=== PATIENT | female | born 1935 | race Caucasian/White ===

== ENCOUNTER 2018-02-07 10:50 | Inpatient (IN) ==
[2018-02-07 11:19] LABS: Basophils # 0.1 K/mm3 (0-0.2); Basophils % 0.4 % (0.1-2.0); Eosinophils # 0.1 K/mm3 (0.0-0.4); Eosinophils % 0.6 % (0.1-12.0); Hematocrit 48.7 % (37.0-47.0); Hemoglobin 14.6 g/dL (12.2-16.2); Lymphocytes # 1.1 K/mm3 (0.7-4.5); Lymphocytes % 5.3 K/mm3 (10-50); Mean Corpuscular Hemoglobin 28.1 pg (27.0-31.2); Mean Corpuscular Volume 93.6 fl (81-99); Mean Platelet Volume 8.6 fl (7.4-10.4); Monocytes # 0.2 K/mm3 (0.1-1.0); Monocytes % 1.1 % (1.7-9.3); Neutrophils # 18.9 K/mm3 (1.8-7.8); Neutrophils % 92.6 % (37.0-80.0); Platelet Count 366 K/mm3 (142-424); Red Cell Distribution Width 14.8 % (11.5-17.5); White Blood Count 20.4 K/mm3 (4.8-10.8)
--- NOTE | 2018-02-07 11:32 | Emergency Department Note ---
ED Disposition Clinical Impression: Enteritis Hypotension Qualifiers: Hypotension type: unspecified hypotension type Qualified Code(s): I95.9 - Hypotension, unspecified Disposition: Still a Patient Condition on Discharge: Serious - Critical Care Critical Care Time: Yes Attestation: On 02/07/18, the high probability of a clinically significant, sudden or life threatening deterioration of the following system(s) required my full and direct attention, intervention and personal management. The time I documented below is in addition to time spent performing reported procedures but includes the following listed in this critical care notation. Vital system(s) involved:: Circulatory Failure My critical care processes included: Assessment & monitoring of V/S, Initial and Re-exams, Data Review/Interpretation, Coordinating Care, Medication Orders and management, Documentation Medical Decision Making - Quinten Inquiry Pt receiving controlled substance: Yes Quinten was queried for this patient: No Reason not queried -: Emergent pt cond-no time Risks and benefits of using a controlled substance: were not discussed with pt by me Vital Signs: 02/07/18 10:50 02/07/18 11:05 02/07/18 11:10 Temperature 97.6 F Temperature Source Oral Pulse Rate 99 H Pulse Rate [Left Radial] 91 H Respiratory Rate 20 Blood Pressure [Right Arm] 188/74 Blood Pressure Mean [Right Arm] 112 Blood Pressure Source [Right Arm] Blood Pressure Position [Right Arm] Sitting 02 Sat by Pulse Oximetry 88 L 85 L 95 Oxygen Delivery Method Nasal Cannula Room Air Nasal Cannula Oxygen Flow Rate (LPM) 4 2 4 02/07/18 11:28 02/07/18 13:15 Temperature 97.5 F L Temperature Source Oral Pulse Rate Pulse Rate [Left Radial] 110 H 85 Respiratory Rate 24 32 H Blood Pressure [Right Arm] 177/78 97/58 Blood Pressure Mean [Right Arm] 111 71 Blood Pressure Source [Right Arm] Automatic Cuff Automatic Cuff Blood Pressure Position [Right Arm] Sitting Sitting 02 Sat by Pulse Oximetry 92 L 96 Oxygen Delivery Method Nasal Cannula Nasal Cannula Oxygen Flow Rate (LPM) 4 3 - Lab Data Lab Results 02/07/18 11:00: WBC 20.4 H*, RBC 5.20, Hgb 14.6, Hct 48.7 H, MCV 93.6, MCH 28.1 , MCHC 30.0 L, RDW 14.8, Plt Count 366, MPV 8.6, Neut % (Auto) 92.6 H, Lymph % ( Auto) 5.3 L, [place] % (Auto) 1.1 L, Eos % (Auto) 0.6, Baso % (Auto) 0.4, Neut # ( Auto) 18.9 H, Lymph # (Auto) 1.1, [place] # (Auto) 0.2, Eos # (Auto) 0.1, Baso # ( Auto) 0.1 02/07/18 11:00: Sodium 140, Potassium 4.6, Chloride 99, Carbon Dioxide 33 H, Anion Gap 12.6, BUN 22 H, Creatinine 1.18 H, Estimated Creat Clear 30, Estimated GFR 44 L, Est GFR ( Amer) 53 L, Glucose 157 H, Calcium 9.7, Total Bilirubin 1.2 H, AST 68 H, ALT 50, Alkaline Phosphatase 127 H, Total Creatine Kinase 101, CK-MB (CK-2) 0.9, CK-MB (CK-2) Rel Index 0.9, Troponin I < 0.02, Total Protein 7.9, Albumin 3.1 L, Globulin 4.8 H, Albumin/Globulin Ratio 0.6 L, Amylase 93, Lipase 367 02/07/18 11:00: Lactic Acid 2.6 H 02/07/18 11:00: Specimen Source Left radial, O2 % 36%, ABG pH 7.29 L, ABG pCO2 57.3 H, ABG pO2 81.7, ABG HCO3 26.6 H, ABG Total CO2 28.4 H, ABG O2 Saturation 95, ABG Base Excess 0.0, Doug Test Acceptable Result diagrams: 02/07/18 11:00 02/07/18 11:00 Orders (Tests/Meds): ED MEDICATIONS Generic Name Dose Route Start Last Admin Trade Name Freq PRN Reason Stop Dose Admin Metronidazole 100 mls @ 100 mls/hr 02/07/18 14:15 Flagyl 500mg/100ml Ivpb IV 02/21/18 14:14 Q8H NAY Protocol Levofloxacin/Dextrose 750 mg in 150 mls @ 100 mls/hr 02/07/18 14:15 02/07/18 14:34 Levofloxacin 750mg/150ml Premix IV 02/21/18 14:14 100 mls/hr Q24H NAY Administration Protocol Discontinued Medications Generic Name Dose Route Start Last Admin Trade Name Freq PRN Reason Stop Dose Admin Albuterol/Ipratropium 3 ml 02/07/18 11:00 02/07/18 11:10 Duoneb 3ml [facility] 02/07/18 11:01 3 ml ONCE ONE Administration Albuterol/Ipratropium 3 ml 02/07/18 14:20 Duoneb 3ml [facility] 02/07/18 14:21 ONCE ONE Methylprednisolone Sodium Succinate 125 mg 02/07/18 14:04 Solu-Medrol 125mg/2ml Vial IV 02/07/18 14:05 ONCE ONE Morphine Sulfate 2 mg 02/07/18 11:38 02/07/18 11:45 Morphine 4mg/Ml Syringe IV 02/07/18 11:39 2 mg ONCE ONE Administration Ondansetron HCl 4 mg 02/07/18 11:38 02/07/18 11:45 Zofran 4mg/2ml Vial IV 02/07/18 11:39 4 mg ONCE ONE Administration Sodium Chloride 1,000 ml 02/07/18 14:05 Sod Chlor 0.9% 1000ml Bag IV 02/07/18 14:06 BOLUS ONE ORDERS Category Date Time Status CBC w/Auto Diff [Complete Blood Count Auto Diff] Stat Lab 02/07/18 11:00 Results Lactic Acid Follow Up (4 hr) Stat Lab 02/07/18 11:38 Ordered Urinalysis and Microscopic Stat Lab 02/07/18 11:33 Ordered Blood Culture Stat Micro 02/07/18 11:00 Received - Radiology Data #1 Image(s): Chest Image Reviewed: Yes I reviewed the patient's radiology image copd, fibrosis, calc nodules - CT Data CT Scan: Abdomen, Pelvis Time Received: 13:[address] Reviewed: Yes: I discussed the CT results w/the radiologist Findings Narrative: Pruritus, liquid stool, will likely develop diarrhea. Appendix not well seen. Nodules in lungs. - ECG Data Tracing #1 EKG interpreted by Johan Lopez MD: Rhythm: sinus Rate: 94 [place]: normal Ectopy: none Conduction: normal ST Segment Changes: none T Wave Changes: none Q Waves: none No evidence of acute ischemia or injury Baseline artifact and wander present, but I consider the EKG adequate for accurate interpretation. Medical Decision Narrative: 2:00 PM: Patient states she feels better at this point. Reexamined abdomen. Tender left upper quadrant. Oldest son is present. He is the power of trust and estates attorney. He is agreeable to admission. He states that patient's breathing appears somewhat worse than her usual when she is not feeling well. I discussed CODE STATUS and advanced directives. He states she does not have an advanced directive but does not feel she would want to be on a ventilator, but no decisions have been made in advance directives or CODE STATUS. 2:00 PM: I have discussed the case with Dr. Bender who agrees to admit the patient to the hospital. We discussed the patient's clinical information, including history, exam, laboratory and radiology results and ED course. Per hospital procedure, I will write temporary bridge inpatient orders on the patient. Specific orders requested by the admitting physician: Intravenous Flagyl and Levaquin. Continue nebulizer treatments and steroids. Stool PCR if patient develops diarrhea. Agrees with second liter saline bolus. Then saline at 200 cc/h for 5 hours and then at 150 cc/h. Do not start BiPAP at this time. General Adult HPI - General Chief complaint: Shortness of Breath/Dyspnea Stated complaint: SOA Time Seen by Provider: 02/07/18 11:32 Mode of Arrival: EMS Limitations: No Limitations Description of Symptoms (Recalled from ER Triage Doc. by RN): Lives in apartments [place] called up for a nurse stating she was SOA, hx of COPD , Son stated that she has been sick for 2 days, nausea noted with no BM since 02/01/18 - History of Present Illness HPI narrative: States that this morning she developed some cramps in her lower abdomen like she needed to use the bathroom. States pain then moved up to her upper abdomen. She had a small bowel movement today. Small amount of vomiting. No fever that she is aware of. Denies urinary symptoms. States prior history of cholecystectomy and hysterectomy. States has slight trouble breathing, but states this is chronic. - Related Data Home Medications Medication Instructions Recorded Confirmed Albuterol Sulfate [Albuterol HFA 1 applic IH Q6 02/07/18 02/07/18 Inhaler] Apixaban [Eliquis] 1 tab PO DIRECTED 02/07/18 02/07/18 Gabapentin [Gabapentin 100mg Cap] 2 tab PO DAILY 02/07/18 02/07/18 Ipratropium/Albuterol Sulfate 1 inh IH DAILY 02/07/18 02/07/18 [Albut-Ipratropium 2.5mg-0.5mg/3 ml] Lisinopril [Lisinopril 40mg Tablet] 1 pow .ROUTE DAILY 02/07/18 02/07/18 Metoprolol Tartrate [Metoprolol 1 tab PO DAILY 02/07/18 02/07/18 Tartrate] Omeprazole [Omeprazole 40mg 1 tab PO DAILY 02/07/18 02/07/18 Capsule] Pravastatin Sodium [Pravachol 40mg 1 tab PO DAILY 02/07/18 02/07/18 Tablet] Sotalol HCl [Betapace 80mg Tablet] 1 tab PO DIRECTED 02/07/18 02/07/18 buPROPion HCl [Wellbutrin SR 150mg 150 mg PO DAILY 02/07/18 02/07/18 Tablet] hydroCHLOROthiazide [HCTZ 12.5mg 1 tab PO DAILY 02/07/18 02/07/18 capsule] predniSONE [Deltasone 10mg tablet] 1 tab PO DAILY 02/07/18 02/07/18 Allergies Allergy/AdvReac Type Severity Reaction Status Date / Time erythromycin base Allergy Mild Rash Verified 02/07/18 10:56 [From Erythrocin] alendronate sodium Allergy Rash Verified 02/07/18 10:57 [From Fosamax] nitrofurantoin Allergy Rash Verified 02/07/18 10:57 [From Macrobid] rofecoxib [From Vioxx] Allergy Rash Verified 02/07/18 10:57 Sulfa (Sulfonamide Allergy Rash Verified 02/07/18 10:57 Antibiotics) [facility] History I have reviewed the patient's past medical history: Yes Medical History: Reports:: Cancer (right breast) - Social History Smoking Status: Smoker, status unknown Alcohol Intake: never - Psychiatric History Expresses thoughts of harming self/others: None Suicide Plan Description: No Plan ROS Obtained: Yes All systems reviewed & no additional complaints - Constitutional Constitutional: Denies fever(s) - Cardiovascular Cardiovascular: Denies chest pain - Respiratory Respiratory: Yes dyspnea (Chronic) - Gastrointestinal Gastrointestingal: Reports: abdominal pain, constipation, vomiting. Denies: diarrhea - Genitourinary Female Genitourinary: Denies difficulty voiding Physical Exam - General General appearance: alert, in distress (Mild, states "miserable") - Head Head exam: atraumatic, normocephalic, normal inspection - Eye Eye exam: Present: normal appearance, PERRL, EOMI - ENT ENT exam: Present: normal exam, normal oropharynx, mucous membranes moist, TM's normal bilaterally, normal external ear exam - Neck Neck exam: Present: normal inspection, full ROM, trachea midline. Absent: meningismus, lymphadenopathy - Chest Chest inspection: Present: normal inspection, symmetric chest wall rise. Absent : tenderness - Respiratory Respiratory exam: Present: normal lung sounds bilaterally, other (Tachypnea) - Cardiovascular Cardiovascular exam: Present: regular rate, normal rhythm. Absent: JVD - Abdominal Exam Abdominal exam: Present: soft, tenderness, normal bowel sounds. Absent: distention, guarding Abdominal tenderness: Present: RUQ - Extremities Exam Extremities exam: Present: normal inspection, full ROM, normal capillary refill. Absent: calf tenderness - Back Exam Back exam: Present: normal inspection, tenderness - Neurological Exam Neurological exam: Present: alert, oriented X3 - Psychiatric Psychiatric exam: Present: anxious - Skin Skin exam: Present: warm, dry, pallor
[2018-02-07 11:43] LABS: ABG HCO3 26.6 mmhg (22.0-26.0); ABG Oxygen Saturation 95 % (90-100); ABG PH 7.29 mmol/L (7.35-7.45); ABG PO2 81.7 mmhg (80-100); ABG TCO2 28.4 mmhg (23-27)
[2018-02-07 11:45] LABS: Alanine Aminotransferase 50 U/L (12-78); Albumin Level 3.1 gm/dL (3.4-5.0); Albumin/Globulin Ratio 0.6 (1.1-1.8); Alkaline Phosphatase 127 U/L (46-116); Amylase 93 U/L (25-125); Anion Gap 12.6 mEq/L (5-15); Bilirubin,Total 1.2 mg/dL (0.2-1.0); Blood Urea Nitrogen 22 mg/dL (7-18); Calcium 9.7 mg/dL (8.5-10.1); Carbon Dioxide 33 mmol/L (21.0-32.0); Chloride 99 mmol/L (98-107); Creatine Kinase 101 U/L (26-192); Globulin 4.8 gm/dl (1.3-3.2); Glucose 157 mg/dL (74-106); Lipase 367 u/L (73-393); Potassium 4.6 mmoL/L (3.5-5.1); Sodium 140 mmol/L (136-145); Total Protein,Serum 7.9 gm/dL (6.4-8.2)
[2018-02-07 11:46] LABS: Allen's Test Acceptable; Aspartate Amino Transferase 68 U/L (15-37); Oxygen 36% %
[2018-02-07 11:48] LABS: ABG PCO2 57.3 mmhg (35.0-45.0)
[2018-02-07 15:42] LABS: Lymphocytes % 3 % (10-50); Neutrophils % 81 % (42-76); RBC Morphology Normal; Total Cells Counted 100
--- NOTE | 2018-02-07 16:55 | History & Physical Report ---
*Admission Date: 02/07/18 *Chief complaint: Lethargy/vomiting *History of present illness: 82-year-old white female, with ongoing COPD, chronic obesity and chronic hypertension who lives in an assisted living apartment here in [place] whose family noticed that she was lethargic today, and had some episodes of vomiting at home. Assisted living staff noticed that she was mildly cyanotic. Brought to the emergency department where she was found to have abdominal pain, significant hypotension, leukocytosis and evidence of enteritis/colitis on CT scanning. Admitted to hospital for IV antibiotics and further diagnostic testing. She reports that she is feeling some better after fluid administration but is very lethargic. [facility] History Medical History: Reports:: Atrial Fibrillation, Cancer (right breast), Chronic Obstructive Pulmonary Disease (COPD) (PET scan with possible lung cancer) Denies:: Diabetes Mellitus Type 1, Diabetes Mellitus Type 2, Internal Pacemaker, MRSA Other Medical History: Reports: Chemotherapy Other Surgeries: No: Pacemaker Amputation: No Fractures: No - *Social History Educational Level: Attended Grade School Smoking Status: Current every day smoker Tobacco Type: cigarettes Alcohol Intake: never Occupational Status: retired Housing: apartment Household Members: none - Psychiatric History Expresses thoughts of harming self/others: None Suicide Plan Description: No Plan *Family Hx:: Cancer, Diabetes, Hyperlipidemia, Hypertension Review of Systems - Review of Systems Review of systems:: unable to obtain, other, pertinent systems reviewed and negative unless documented below - Constitutional Reports anorexia, Reports daytime sleepiness, Reports lack of energy - ENT Reports abnormal hearing - *Cardiovascular Reports chest pain with activity, Reports shortness of breath, Reports shortness of breath with activity, Reports leg swelling, Denies irregular heart rhythm - *Respiratory Reports cough, Denies change in phlegm color, Denies chest congestion, Denies shortness of breath - *Gastrointestinal Reports abdominal pain, Reports belching, Reports change in bowel habits, Reports loose stools, Denies incontinent of stools - *Musculoskeletal Reports abnormal walking, Reports joint pain Meds Home Medications Medication Instructions Recorded Confirmed Type Albuterol Sulfate [Albuterol HFA 1 applic IH Q6 02/07/18 02/07/18 History Inhaler] Apixaban [Eliquis] 1 tab PO DIRECTED 02/07/18 02/07/18 History Gabapentin [Gabapentin 100mg Cap] 2 tab PO DAILY 02/07/18 02/07/18 History Ipratropium/Albuterol Sulfate 1 inh IH DAILY 02/07/18 02/07/18 History [Albut-Ipratropium 2.5mg-0.5mg/3 ml] Lisinopril [Lisinopril 40mg Tablet] 1 pow .ROUTE DAILY 02/07/18 02/07/18 History Metoprolol Tartrate [Metoprolol 1 tab PO DAILY 02/07/18 02/07/18 History Tartrate] Omeprazole [Omeprazole 40mg 1 tab PO DAILY 02/07/18 02/07/18 History Capsule] Pravastatin Sodium [Pravachol 40mg 1 tab PO DAILY 02/07/18 02/07/18 History Tablet] Sotalol HCl [Betapace 80mg Tablet] 1 tab PO DIRECTED 02/07/18 02/07/18 History buPROPion HCl [Wellbutrin SR 150mg 150 mg PO DAILY 02/07/18 02/07/18 History Tablet] hydroCHLOROthiazide [HCTZ 12.5mg 1 tab PO DAILY 02/07/18 02/07/18 History capsule] predniSONE [Deltasone 10mg tablet] 1 tab PO DAILY 02/07/18 02/07/18 History Allergies Allergy/AdvReac Type Severity Reaction Status Date / Time erythromycin base Allergy Mild Rash Verified 02/07/18 10:56 [From Erythrocin] alendronate sodium Allergy Rash Verified 02/07/18 10:57 [From Fosamax] nitrofurantoin Allergy Rash Verified 02/07/18 10:57 [From Macrobid] rofecoxib [From Vioxx] Allergy Rash Verified 02/07/18 10:57 Sulfa (Sulfonamide Allergy Rash Verified 02/07/18 10:57 Antibiotics) Exam Vital signs and Labs for Last 24 Hours: Temp Pulse Resp BP Pulse Ox 98.1 F 88 22 102/79 96 02/07/18 15:49 02/07/18 15:49 02/07/18 15:49 02/07/18 15:49 02/07/18 13:15 I & O for Last 24 hours: Intake & Output 02/05/18 02/06/18 02/07/18 02/08/18 11:59 11:59 11:59 11:59 Intake Total 1999 Balance 1999 Narrative: Patient is morbidly obese which limits all aspects of her exam and complicates her care. Lungs have rhonchi bilaterally. Heart rate regular. Oropharynx dry, flat neck veins. Abdomen is slightly tender in the upper epigastric area and diffusely swollen. Normal bowel sounds. Skin turgor is poor, perfusion is poor. Is able to move her extremities spontaneously well. Global weakness noted, however. H&P: Result - Labs Labs: Abnormal lab results 02/07/18 02/07/18 02/07/18 Range/Units 11:00 11:00 11:00 WBC 20.4 H* (4.8-10.8) K/mm3 Hct 48.7 H (37.0-47.0) % MCHC 30.0 L (31.8-35.4) g/dL Neut % (Auto) 92.6 H (37.0-80.0) % Lymph % (Auto) 5.3 L (10-50) K/mm3 [place] % (Auto) 1.1 L (1.7-9.3) % Neut # (Auto) 18.9 H (1.8-7.8) K/mm3 Neutrophils % (Manual) 81 H (42-76) % Band Neutrophils % 13.0 H (0-8) Lymphocytes % (Manual) 3 L (10-50) % ABG pH (7.35-7.45) mmol/L ABG pCO2 (35.0-45.0) mmhg ABG HCO3 (22.0-26.0) mmhg ABG Total CO2 (23-27) mmhg Carbon Dioxide 33 H (21.0-32.0) mmol/L BUN 22 H (7-18) mg/dL Creatinine 1.18 H (0.55-1.02) mg/dL Estimated GFR 44 L (>60) ml/min Est GFR ( Amer) 53 L (>60) ML/MIN Glucose 157 H (74-106) mg/dL Lactic Acid 2.6 H (0.4-2.0) mmol/L Lactic Acid Fup @ 4Hr (0.4-2.0) Total Bilirubin 1.2 H (0.2-1.0) mg/dL AST 68 H (15-37) U/L Alkaline Phosphatase 127 H (46-116) U/L Albumin 3.1 L (3.4-5.0) gm/dL Globulin 4.8 H (1.3-3.2) gm/dl Albumin/Globulin Ratio 0.6 L (1.1-1.8) 02/07/18 02/07/18 Range/Units 11:00 15:35 WBC (4.8-10.8) K/mm3 Hct (37.0-47.0) % MCHC (31.8-35.4) g/dL Neut % (Auto) (37.0-80.0) % Lymph % (Auto) (10-50) K/mm3 [place] % (Auto) (1.7-9.3) % Neut # (Auto) (1.8-7.8) K/mm3 Neutrophils % (Manual) (42-76) % Band Neutrophils % (0-8) Lymphocytes % (Manual) (10-50) % ABG pH 7.29 L (7.35-7.45) mmol/L ABG pCO2 57.3 H (35.0-45.0) mmhg ABG HCO3 26.6 H (22.0-26.0) mmhg ABG Total CO2 28.4 H (23-27) mmhg Carbon Dioxide (21.0-32.0) mmol/L BUN (7-18) mg/dL Creatinine (0.55-1.02) mg/dL Estimated GFR (>60) ml/min Est GFR ( Amer) (>60) ML/MIN Glucose (74-106) mg/dL Lactic Acid (0.4-2.0) mmol/L Lactic Acid Fup @ 4Hr 2.1 H (0.4-2.0) Total Bilirubin (0.2-1.0) mg/dL AST (15-37) U/L Alkaline Phosphatase (46-116) U/L Albumin (3.4-5.0) gm/dL Globulin (1.3-3.2) gm/dl Albumin/Globulin Ratio (1.1-1.8) Assessment and Plan (1) Enteritis Current visit: Yes Status: Acute Category: Medical Code(s): K52.9 - Noninfective gastroenteritis and colitis, unspecified (2) Hypotension Current visit: Yes Status: Acute Qualifiers: Hypotension type: unspecified hypotension type Qualified Code(s): I95.9 - Hypotension, unspecified Category: Medical Code(s): I95.9 - Hypotension, unspecified - Assessment and plan all Dx Assessment and Plan for all problems:: Significant issues with hypotension, possible enteritis. Begin therapy with Levaquin and Flagyl. IV fluids continue. Postobservation. Patient has significant medical problems, possible new malignancy. Patient's family indicated their desire not to have her on aggressive life support measures.
[2018-02-07 20:21] VITALS: BP 78/47
[2018-02-07 22:14] LABS: Microscopic, Urine URINE MICROSCOPIC (MICROSCOPIC)
[2018-02-07 22:29] LABS: Appearance,Urine CLOUDY (Clear); Color,Urine BROWN (Yellow)
[2018-02-07 22:36] LABS: Bacteria,Urine 4+ /lpf; RBC,Urine 50-100 #/hpf (0-3)
[2018-02-07 22:37] LABS: Amorphous Sediment,Urine 1+ /lpf; Calcium Oxalate Crystals,Urine 2+ /lpf
--- NOTE | 2018-02-08 04:04 | Death Note ---
Pronouncement Note - Date and Time of Date of : 02/08/18 Time of : 03:35 - PCOD Preliminary cause of : Bacteremia - Additional Data Confirmation of : no pulse, no respirations, pupils fixed and dilated Family: at bedside Attending/PCP notified?: Yes Attending physician: Hector Bender MD Was code activated?: No Autopsy requested?: No plan examiner notified?: No Organ bank notified?: Yes Advance directives: No
--- NOTE | 2018-02-08 08:33 | Death Note ---
Discharge Sum: Prov - Provider Primary care physician: Hector Bender MD Admitting clinician: Hector Bender Attending physician on admission: Hector Bender Pronouncing clinician: Jonathan Ramirez Discharge Sum: Diag - PCOD Cause of : Bacteremia Discharge Sum: Summary - Date and Time Date of admission: 02/07/18 15:45 Date of : 02/08/18 Time of : 03:35 - Summary Details: Patient was admitted with diagnosis of sepsis, lactic acidosis, leukocytosis and dehydration with evidence of enteritis. Patient also has newly diagnosed lung tumors that are probably cancer, workup pending. Patient has had a precipitous line in her health and has wished to be a DNR status. Patient was admitted on broad-spectrum antibiotics, IV fluids, but continued to compensate through the evening hours and into the night. She succumbed to hypotension and cardiac failure the date and time indicated above. In accordance with her and her family's wishes, no aggressive resuscitative measures were undertaken. - Additional Data Confirmation of as documented by pronouncing clinician: no pulse, no respirations Family: at bedside Attending/PCP notified?: Yes Attending physician: Hector Bender MD Was code activated?: No Autopsy requested?: No certified driver examiner notified?: No Organ bank notified?: Yes Advance directives: Yes Hospice patient?: No
== END 2018-02-08 08:52 | disposition expired ==
LOC: 2ND 10:50 → ER 10:50 → OBSVTOIN 15:45 → 2ND 15:49
PROVIDERS: ADMIT Internal Medicine Adolescent Medicine; ATTEND Internal Medicine Adolescent Medicine